=== PATIENT | female | born 1985 | race Caucasian/White ===

== ENCOUNTER 2021-10-08 13:00 | Outpatient (RCR) | payer BC ==
--- NOTE | 2021-09-24 13:50 | NUR ---
Iron infusion complete. This is pt first dose so she will sit for one hour before discharging.
[2021-09-24 14:19] VITALS: BP 122/74; PULSE 57; TEMP 98.1
[2021-10-01 13:31] VITALS: BP 107/64; PULSE 62; TEMP 98.8
--- NOTE | 2021-10-01 13:31 | NUR ---
Pt refused tylenol and benadry premeds.
[~2021-10-08] VITALS: Ht 167.6 cm; Wt 121.0 kg
[~2021-10-08 13:00] MED LIST: AJOVY225 MG/1.5 SQ; ALEVE 220MG220 MG PO; BUSPAR5 MG PO; DESYREL 50MG50 MG PO; FLAGYL500 MG PO; IMITREX100 MG PO; UBRELVY50 MG PO; ZOLOFT 100MG100 MG PO; [UNRECOGNIZED DRUG - OTHER] VG
[2021-10-08 13:24] VITALS: BP 114/78; PULSE 64; TEMP 98.2
== END 2021-10-16 13:48 ==
LOC: EUO 13:00
DX: D50.9 Iron deficiency anemia, unspecified (principal); Z79.899 Other long term (current) drug therapy
CPT/HCPCS: J1756

== ENCOUNTER → 2022-01-16 | Outpatient (CLI) | payer BC | LOC: COL.RAD 07:39 | DX: K80.20 Calculus of gallbladder without cholecystitis without obstruction (principal); K76.0 Fatty (change of) liver, not elsewhere classified ==

== ENCOUNTER 2024-04-30 14:22 | Inpatient (IN) | payer OTHER ==
[~2024-04-30] VITALS: Ht 167.6 cm; Wt 61.3 kg
[2024-05-04] VITALS (10 sets, daily range): BP systolic 97–111; BP diastolic 63–72; PULSE 71–79; TEMP 97.8–98.4
--- NOTE | 2024-05-04 03:51 | NUR ---
An Electronic Health Record (EHR) downtime event occurred during this patient s care. For legal medical record information generated during the downtime period, please reference the patient s legal record information generated during the downtime period, please reference the patient s legal medical record. Paper or scanned documentation has been incorporated into the legal medical record which is maintained in accordance with Health Information Management (HIM) and record retention policies
[2024-05-04] MEDS ORDERED: fentaNYL 50 MCG/ML 2 ML VIAL IV PRN (04:30)
[2024-05-04] MEDS ORDERED: Acetaminophen Oral Susp 325 MG/10.15 ML UD PO PRN (04:30)
[2024-05-04] MEDS ORDERED: Albuterol/Ipratropium 3 MG-0.5 MG/3 ML Neb Soln IH PRN (04:30)
[2024-05-04] MEDS ORDERED: Morphine 4 MG/ML VIAL IV PRN (04:30)
[2024-05-04] MEDS ORDERED: Naloxone 0.4 MG/ML VIAL IV PRN (04:45)
[2024-05-04] MEDS ORDERED: Ondansetron 4 MG/2 ML VIAL IV PRN (04:45)
[2024-05-04] MEDS ORDERED: D10W 1,000 ML IV SCH (06:00)
[2024-05-04] MEDS ORDERED: Insulin Lispro (HumaLOG) SQ SCH (08:00)
--- NOTE | 2024-05-04 08:00 | NUR ---
PATIENT IS A&O. VSS. NOTED AM BS OF 75. NPO. PLAN IS FOR A SWALLOW EVAL THIS AM, HOLDING BOLUS FEEDS TILL AFTER SWALLOW EVAL. PATIENT REPORTS SOME NAUSEA & FREQUENT STOOLS AFTER THE LAST TWO FEEDINGS SHE GOT YESTERDAY. DIETARY FOLLOWING, WILL DISCUSS FEED TOLERATION. IV FLUIDS INFUSING VIA PUMP INTO RIGHT WRIST IV. G-TUBE CLAMPED. SELENE DRAIN NOTED SATURATED DSG AND NO BULB COMPRESSION. CHANGED SELENE DSG AND PUT DRAIN TO BULB COMPRESSION. ABD LAP SITES X4 ARE WELL APPROXIMATED. HEAD TO TOE ASSESSMENT COMPLETE. FAMILY AT BEDSIDE THIS AM. NO OTHER NEEDS. CALL LIGHT IN REACH.
[2024-05-04] MEDS ORDERED: Patient's Own Medication Item PO SCH (09:00)
[2024-05-04] MEDS ORDERED: Pantoprazole 40 MG in NS 10 ML IV SCH (09:00)
--- NOTE | 2024-05-04 09:45 | NUR ---
PATIENT GOING DOWN TO RADIOLOGY FOR SWALLOW EVAL.
--- NOTE | 2024-05-04 13:00 | NUR ---
PATIENT C/O NAUSEA AND SHARP LEFT FLANK POSTERIOR PAIN AFTER 120CC BOLUS FEED IN G-TUBE. GAVE PRN IV ZOFRAN. NO EMESIS, BASIN AT BEDSIDE. PATIENT NOW REFUSING FUTURE BOLUS FEEDS BUT WOULD STILL LIKE TO HAVE CLEAR LIQUID DIET. PROVIDER NOTIFIED.
[2024-05-04] MEDS ORDERED: Sucralfate Susp 1 GM/10 ML UD PO SCH (14:00)
--- NOTE | 2024-05-04 19:39 | NUR ---
report received from leann roach. pt resting in bed working on her laptop. pt denies pain. call light in reach. all needs met at this time.
[2024-05-04] MEDS ORDERED: SUMAtriptan 6 MG/0.5 ML SYRINGE SQ PRN (20:30)
--- NOTE | 2024-05-04 22:18 | NUR ---
shift assessment complete, see documentation. pt tolerated hs meds well. pt c/o headache rating it 06/02. prn imitrex administered per orders. pt also requesting pain meds related to lower abdomen dressing site. call light in reach. all needs met at this time.
[2024-05-05] VITALS (11 sets, daily range): BP systolic 98–110; BP diastolic 65–73; PULSE 18–82; TEMP 97.5–98.3
--- NOTE | 2024-05-05 09:10 | NUR ---
Pt laying in bed. Mother and son at bedside. A&Ox4. VSS. S1S2. Clear lungs on RA. ABD is flat, soft, non-tender with audible bowel sounds. Palpable pulses in all extremities with 5/5 strength. PT reports pain when moving, but minimal pain 1-2/10 when remaining still. Feels as if sutures holding drain in are pulling when walking. SELENE drain site is CDI with gauze dressing. Minimal red-tinged drainage in bulb. G-tube site is CDI with gauze dressing. Lap sites x4 - WA, open to air. IV in R forearm has bloody drainage on dressing. Pt denies pain at IV site. Discussed need to change IV site today. Pt agreeable. IV has 10% Dextrose at 75 cc/hr and Zosyn 4.35g @ 25cc/hr running. Pt states items on trays are too sugary for her to eat. Sugar makes her feel sick. Pt's mother brought in beef broth. Pt able to sip on it. Pt wanting to talk with provider regarding showering and plan to advance diet. Told Pt the provider would be in to see her today. Administered AM meds. Call light in reach.
--- NOTE | 2024-05-05 10:44 | NUR ---
No gastric return from G-tube. 30 mLs water administered. Pt states anything going into the G-tube makes her nauseated. Attmepted twice to get new IV. RAMANDEEP called. Pt has call light in reach.
[2024-05-05] MEDS ORDERED: *Potassium Replacement Protocol MC SCH (16:30)
[2024-05-05] MEDS ORDERED: Potassium Bicarbonate/Citrate 20 MEQ Effervescent TAB PO SCH (16:30)
[2024-05-05] MEDS ORDERED: traZODone 50 MG TAB PO PRN (17:15)
--- NOTE | 2024-05-05 20:30 | NUR ---
G-TUBE FLUSHED WITH WARM WATER 30ML. NO COMPLICATIONS NOTED. SELENE DRAIN SERINSANGEOUS FLUID DRAINING.
[2024-05-05] MEDS ORDERED: traZODone 50 MG TAB PO SCH (21:00)
--- NOTE | 2024-05-05 21:00 | NUR ---
UPON SHIFT ASSESSMENT, MARCELLUS WAS AWAKE IN BED WITH DEXTROSE IV RUNNING AT 75ML/HR. SELENE DRAINING SEROUS FLUID, G-TUBE SITE SHOWS MINIMAL DRAINAGE. PATIENT DENIES NAUSEA AND IS AWAITING PROTEIN SHAKES THAT SHE TOLERATES WELL TO BE BROUGHT BY FAMILY MEMBER. PATIENT DENIES PAIN OR NEEDS AT THIS TIME VS ARE WNL.
[2024-05-06] VITALS (7 sets, daily range): BP systolic 98–107; BP diastolic 66–72; PULSE 61–76; TEMP 97.5–98
--- NOTE | 2024-05-06 01:49 | NUR ---
ENTERED PATIENT ROOM, SELENE BULB SUCTION SEAL UNDONE. 10 ML SERINSANGEOUS FLUID NOTED. RE-ESTABLISHED BULB SUCTION.
--- NOTE | 2024-05-06 04:30 | NUR ---
G-TUBE DRESSING CHANGED. SCANT DRIED BLOOD. SELENE DRAIN SITE MINIMAL DRAINAGE-DID NOT CHANGE DRESSING IT WILL MOST LIKELY BE PULLED TODAY. ENCOURAGED PATIENT TO CONSUME PROTEIN SHAKE BG WAS NOW 89. PATIENT ACCEPTING.
[2024-05-06] MEDS ORDERED: Dextrose (Glucose) 15 GM (4 x 3.75 GM) Chewable TABLET PACK PO PRN (09:00)
[2024-05-06] MEDS ORDERED: Dextrose 50% Water 25 GM/50 ML SYRINGE IV PRN (09:00)
[2024-05-06] MEDS ORDERED: Glucagon 1 MG VIAL IM PRN (09:00)
[2024-05-06] MEDS ORDERED: Sertraline 100 MG TAB PO SCH (09:09)
[2024-05-06] MEDS ORDERED: busPIRone 5 MG TAB PO SCH (09:09)
--- NOTE | 2024-05-06 09:51 | NUR ---
Follow-up visit; Monique states that she is doing well this morning. At least one family member is with her. Wrapper Rewinder wishes her well and God's blessings as always.
--- NOTE | 2024-05-06 10:06 | NUR ---
AM MEDS GIVEN ORDERED. PT RESTING IN BED WITH FAMILY AT BEDSIDE. IV TO RFA PATENT AND FLUID @75 MLS. IN TO SEE PT THIS AM, SEE COMPUTER FOR ORDERS.
--- NOTE | 2024-05-06 10:20 | NUR ---
DISCONTINUED SELENE DRAIN PER DR. TOENY. PT TOLERATED WELL. DRESED DRAIN SITE WITH GAUZE AND TAPE.
[2024-05-06] MEDS ORDERED: PROTONIX 40MG T40 MG PO (12:40)
[2024-05-06] MEDS ORDERED: CARAFATE 1GM1 G PO (12:41)
--- NOTE | 2024-05-06 15:26 | NUR ---
DISCHARGE INSTRUCTIONS REVIEWED WITH PT. QUESTIONS ANSWERED. PT WAITING FOR RIDE FROM FAMILY.
== END 2024-05-06 16:42 | disposition home or self-care (01) | DRG 327 ==
LOC: COL.ER 14:22 → SURG 05-01 02:05
PROVIDERS: ADMIT Hospitalist
PROC: 0DU647Z Supplement Stomach with Autologous Tissue Substitute, Percutaneous Endoscopic Approach (ICD-10-PCS; principal; 2024-05-01)
PROC: 8E0W4CZ Robotic Assisted Procedure of Trunk Region, Percutaneous Endoscopic Approach (ICD-10-PCS; 2024-05-01)
PROC: 0DH64UZ Insertion of Feeding Device into Stomach, Percutaneous Endoscopic Approach (ICD-10-PCS; 2024-05-01)
DX: K25.5 Chronic or unspecified gastric ulcer with perforation (principal); E87.1 Hypo-osmolality and hyponatremia; K56.609 Unspecified intestinal obstruction, unspecified as to partial versus complete obstruction; E83.42 Hypomagnesemia; E87.6 Hypokalemia; E16.2 Hypoglycemia, unspecified; G43.909 Migraine, unspecified, not intractable, without status migrainosus; F32.A Depression, unspecified; G47.00 Insomnia, unspecified
CPT/HCPCS: A9284; C9113; J1650; J2405; J2543; J3030

== ENCOUNTER 2024-05-21 07:51 | Day surgery (SDC) | payer OTHER ==
[~2024-05-21] VITALS: Ht 165.1 cm; Wt 63.0 kg
[~2024-05-21 07:51] MED LIST changes: +CARAFATE 1GM1 G PO; +Iohexol 300 - 100 ML VIAL IV ONE; +LR 1,000 ML IV SCH; +PROTONIX 40MG T40 MG PO
[2024-05-21 08:29] VITALS: BP 106/77; PULSE 74; TEMP 97.5
[2024-05-21] MEDS ORDERED: IMITREX ST6 MG/0.51 SQ (08:53)
[2024-05-21] MEDS ORDERED: PROTONIX 40MG T40 MG PO (08:54)
[2024-05-21] MEDS ORDERED: CARAFATE 1GM1 G PO (08:55)
[2024-05-21] MEDS ORDERED: STRATTERA 40MG40 MG PO (08:57)
--- NOTE | 2024-05-21 09:07 | NUR ---
Pt arrived with mother, VSS and WNL for procedure, RR even and unlabored, consents reviewed and signed, no questions/concerns; pt changed Gtube site dressings by self; reviewed meds/pharm/allergies/history.
[2024-05-21] MEDS ORDERED: Lidocaine PF 2% (20 MG/ML) 5 ML VIAL ONE (09:42)
[2024-05-21] MEDS ORDERED: fentaNYL 50 MCG/ML 2 ML VIAL ONE (09:42)
[2024-05-21] MEDS ORDERED: dexAMETHasone 10 MG/ML VIAL ONE (09:43)
[2024-05-21] MEDS ORDERED: Ketorolac 30 MG/ML VIAL ONE (09:43)
[2024-05-21] MEDS ORDERED: NS 10 ML IV ONE (09:43)
[2024-05-21] MEDS ORDERED: Ondansetron 4 MG/2 ML VIAL ONE (09:43)
[2024-05-21] MEDS ORDERED: NORCO 325 MG-51 TAB PO (09:59)
[2024-05-21] MEDS ORDERED: droPERidol 2.5 MG/ML 2 ML VIAL IV PRN (10:15)
[2024-05-21] MEDS ORDERED: Morphine 2 MG/1 ML VIAL [PACU/SDC ONLY] IV PRN (10:15)
[2024-05-21] MEDS ORDERED: Ondansetron 4 MG/2 ML VIAL IV PRN ×2 (10:15→11:00)
[2024-05-21] MEDS ORDERED: hydrALAZINE 20 MG/ML 1 ML VIAL IV PRN (10:15)
[2024-05-21] MEDS ORDERED: HYDROmorphone 1 MG/1 ML SYRINGE [PACU/SDC ONLY] IV PRN (10:15)
[2024-05-21] MEDS ORDERED: fentaNYL 50 MCG/ML 1 ML SYRINGE/VIAL [PACU/SDC ONLY] IV PRN (10:15)
[2024-05-21] MEDS ORDERED: Acetaminophen 325 MG TAB PO PRN (11:00)
[2024-05-21 11:30] VITALS: BP 112/74; PULSE 108; TEMP 97.8
[2024-05-21 11:45] VITALS: BP 109/70; PULSE 92
--- NOTE | 2024-05-21 11:56 | NUR ---
Pt arrived from PACU at 1125, bedside report given. 4x4 with medipore tape to epigastric area, CDI, surrounding skin without s/s of infection; VSS thus far. Mother at bedside. Pt has already tolerated PO fluids and PO oral intake. Pt c/o pain to left epigastric area, IV Dilaudid administered in PACU, ice bag given. To reassess as needed.
--- NOTE | 2024-05-21 11:58 | NUR ---
Pt still c/o of pain to left epigastric area. Pt denies gas pain. Area where pain is looks WNL. Dressing remains CDI, surrounding skin WNL. Pt and mother states the pain is similar to when she had the bowel perforation, RN to reach out to Dr. St to inquire.
[2024-05-21 12:15] VITALS: BP 103/69; PULSE 85
[2024-05-21 12:30] VITALS: BP 103/67; PULSE 88
== END 2024-05-21 13:00 | disposition home or self-care (01) ==
LOC: SDCO 07:51
DX: K31.6 Fistula of stomach and duodenum (principal); K63.1 Perforation of intestine (nontraumatic); K94.23 Gastrostomy malfunction; Z98.84 Bariatric surgery status
CPT/HCPCS: J0690; J1100; J1170; J1885; J2405; J2704; J3010; J7120; Q9967

== ENCOUNTER 2024-05-22 03:54 | Inpatient (IN) | payer OTHER ==
[~2024-05-22] VITALS: Ht 165.1 cm; Wt 66.8 kg
[2024-05-22] VITALS (15 sets, daily range): BP systolic 86–100; BP diastolic 50–65; PULSE 81–116; TEMP 98.2–99.3
[~2024-05-22 03:54] MED LIST changes: +IMITREX ST6 MG/0.51 SQ; -Iohexol 300 - 100 ML VIAL IV ONE; -LR 1,000 ML IV SCH; +NORCO 325 MG-51 TAB PO; +STRATTERA 40MG40 MG PO
[2024-05-22] MEDS ORDERED: fentaNYL 50 MCG/ML 2 ML VIAL IV ONE ×2 (04:30→07:15)
[2024-05-22] MEDS ORDERED: HYDROmorphone 0.5 MG/0.5 ML SYRINGE IV ONE ×2 (04:30→05:00)
[2024-05-22] MEDS ORDERED: Ondansetron 4 MG/2 ML VIAL IV ONE ×2 (04:30→08:15)
[2024-05-22] MEDS ORDERED: NS 1,000 ML IV ONE ×2 (05:00→07:00)
[2024-05-22 05:03] LABS: BASO % 0.3 % (0.0-2.0); EOS % 0.4 % (0.0-4.0); GRAN # 7.5 K/mm3 (1.4-6.5); HEMATOCRIT 42.5 % (37.0-47.0); HEMOGLOBIN 14.4 g/dl (12.5-16.0); LYMPH # 2.1 K/mm3 (1.2-3.4); LYMPH % 20.6 % (20.0-51.0); MEAN CELL VOLUME 94 fl (80.0-100.0); MEAN CORPUSCULAR HEMOGLOBIN 32 pg (27-31); MEAN CORPUSCULAR HGB CONC 34 g/dl (33.0-37.0); MEAN PLATELET VOLUME 11.3 fl (7.4-10.4); MONO # 0.5 K/mm3 (0.1-0.6); MONO % 4.4 % (1.7-9.3); PLATELET COUNT 414 K/mm3 (130-400)
[2024-05-22 05:15] LABS: ALBUMIN 3.9 g/dL (3.5-5.0); BILIRUBIN,TOTAL 0.7 mg/dL (0.2-1.2); CREATININE, serum 0.72 mg/dL (0.57-1.11); MAGNESIUM 1.9 mg/dL (1.6-2.6); POTASSIUM 3.2 mEq/L (3.5-4.5); TOTAL PROTEIN 6.8 g/dl (6.2-8.1)
[2024-05-22 05:31] LABS: URINE APPEARANCE CLEAR (CLEAR/HAZY); URINE BLOOD NEGATIVE (NEGATIVE); URINE COLOR YELLOW (YELLOW); URINE GLUCOSE NEGATIVE (NEGATIVE); URINE KETONE TRACE (NEGATIVE); URINE NITRATE NEGATIVE (NEGATIVE); URINE PROTEIN(semi-quant) NEGATIVE (NEGATIVE)
[2024-05-22] MEDS ORDERED: Iohexol 300 - 100 ML VIAL IV ONE (05:33)
[2024-05-22] MEDS ORDERED: NS 50 ML IV ONE (05:38)
[2024-05-22 05:55] LABS: COLLECTION METHOD CLEAN CATCH
[2024-05-22] MEDS ORDERED: Rocuronium 50 MG/5 ML Multi-Dose VIAL ONE (08:09)
[2024-05-22] MEDS ORDERED: dexAMETHasone 10 MG/ML VIAL ONE (08:09)
[2024-05-22] MEDS ORDERED: Ondansetron 4 MG/2 ML VIAL ONE (08:09)
[2024-05-22] MEDS ORDERED: Lidocaine PF 2% (20 MG/ML) 5 ML VIAL ONE (08:09)
[2024-05-22] MEDS ORDERED: fentaNYL 50 MCG/ML 2 ML VIAL ONE (08:11)
[2024-05-22] MEDS ORDERED: fentaNYL 50 MCG/ML 1 ML SYRINGE/VIAL [PACU/SDC ONLY] IV PRN (08:30)
[2024-05-22] MEDS ORDERED: hydrALAZINE 20 MG/ML 1 ML VIAL IV PRN (08:30)
[2024-05-22] MEDS ORDERED: Ondansetron 4 MG/2 ML VIAL IV PRN ×2 (08:30→10:15)
[2024-05-22] MEDS ORDERED: HYDROmorphone 1 MG/1 ML SYRINGE [PACU/SDC ONLY] IV PRN (08:30)
[2024-05-22] MEDS ORDERED: Scopolamine 1 MG Delivered 3-Day PATCH TD SCH (08:35)
[2024-05-22] MEDS ORDERED: ePHEDrine 50 MG/ML VIAL ONE (08:59)
[2024-05-22] MEDS ORDERED: NS 1,000 ML IV SCH (10:15)
[2024-05-22] MEDS ORDERED: HYDROmorphone 0.5 MG/0.5 ML SYRINGE IV PRN (10:15)
[2024-05-22] MEDS ORDERED: oxyCODONE 5 MG TAB PO PRN (10:15)
[2024-05-22] MEDS ORDERED: Naloxone 0.4 MG/ML VIAL IV PRN (10:15)
[2024-05-22] MEDS ORDERED: Acetaminophen 500 MG TAB PO PRN (10:15)
--- NOTE | 2024-05-22 10:50 | NUR ---
pt admitted to room from pacu, mother at bedside. pt a&ox4. rates pain a 4/10 which is tolerable for her. denies nausea. x3 lap sites are cdi, abcess incision with gauze dressing with some bloody drainage. scopalamine patch to right ear. fluids infusing into left hand IV. pt oriented to room. med rec and admission assessment complete. pt requesting ice chips, otherwise all needs are met. call light in reach.
--- NOTE | 2024-05-22 11:58 | NUR ---
Data: Drafter [employer] noticed Patient's Mother in surgery waiting area while on [employer] rounds. Assessment: Mother is appropriately concerned and wishes to be supportive. Plan of Care: Drafter [employer] provided prayer and supportive listening to Patient's Mother. Chaplains will remain available as needed/requested while Patient is admitted to this hospital.
[2024-05-22] MEDS ORDERED: Sucralfate 1 G TAB PO SCH (14:00)
[2024-05-22 15:44] LABS: CALCIUM 7.5 mg/dL (8.4-10.2); CREATININE, serum 0.66 mg/dL (0.57-1.11)
[2024-05-22 15:48] LABS: POTASSIUM 2.9 mEq/L (3.5-4.5)
[2024-05-22] MEDS ORDERED: Potassium Bicarbonate/Citrate 20 MEQ Effervescent TAB PO SCH (16:15)
[2024-05-22] MEDS ORDERED: *Potassium Replacement Protocol MC SCH (16:15)
--- NOTE | 2024-05-22 16:58 | NUR ---
draw off worker met with patient to discuss discharge planning. Ha reports she lives in [place]. Her best point of contact is Denny, mother, P# [phone]. PCP is Dr. Gonzales, Pharmacy is [facility]. Insurance is [employer]. No DPOA-HC and not interested in completing one at this time. No DME. Patient reports to be independent with ADLS and is able to transport herself to and from appointments. Patient would like to return home at time of discharge. Discharge plan: Home
[2024-05-22] MEDS ORDERED: traMADol 50 MG TAB PO PRN (17:45)
[2024-05-22 18:15] LABS: C-REACTIVE PROTEIN 4.6 mg/dL (0.00-0.50)
[2024-05-22] MEDS ORDERED: traZODone 50 MG TAB PO SCH (21:00)
[2024-05-23] VITALS (13 sets, daily range): BP systolic 90–105; BP diastolic 56–94; PULSE 76–101; TEMP 98.7–101
[2024-05-23 06:29] LABS: MEAN CELL VOLUME 94 fl (80.0-100.0); MEAN CORPUSCULAR HGB CONC 35 g/dl (33.0-37.0); RED BLOOD COUNT 3.21 M/mm3 (4.10-5.30); REDCELL DISTRIBUTION WIDTH-CV 12.6 % (11.5-14.5)
[2024-05-23 06:51] LABS: ALBUMIN 2.8 g/dL (3.5-5.0); BILIRUBIN,TOTAL 1.1 mg/dL (0.2-1.2); CALCIUM 7.7 mg/dL (8.4-10.2); CREATININE, serum 0.55 mg/dL (0.57-1.11); HEMATOCRIT 30.3 % (37.0-47.0); HEMOGLOBIN 10.5 g/dl (12.5-16.0); MEAN CORPUSCULAR HEMOGLOBIN 33 pg (27-31); PLATELET COUNT 264 K/mm3 (130-400); POTASSIUM 3.2 mEq/L (3.5-4.5); TOTAL PROTEIN 5.1 g/dl (6.2-8.1)
[2024-05-23 06:52] LABS: MEAN PLATELET VOLUME 11.6 fl (7.4-10.4)
[2024-05-23] MEDS ORDERED: Potassium Bicarbonate/Citrate 20 MEQ Effervescent TAB PO SCH (07:30)
--- NOTE | 2024-05-23 07:40 | NUR ---
pt a&ox4 resting in bed. vss. pt reports having a headache, imitrex on held and states that tylenol does not provide relief. pt reports pain on bilateral sides of abdomen, denies wanting narcotics due to headache but ok to try tramadol. pt tolerating clear liquids, will advance to fulls for lunch. [t reports passing gas, bowel sounds are active in all quadrants. incisions are cdi. fluids infusing into left hand IV. potassium replaced per protocol. pt denies needs at this time. call light in reach.
[2024-05-23 08:17] LABS: BAND 11 % (0-10); LYMPHOCYTE 9 % (20.0-51.0); NEUTROPHILS 80 % (42.0-75.2); PLATELET ESTIMATE NORMAL (NORMAL)
[2024-05-23] MEDS ORDERED: SUMAtriptan 6 MG/0.5 ML SYRINGE SQ PRN (08:45)
[2024-05-23 09:12] LABS: C-REACTIVE PROTEIN 12.3 mg/dL (0.00-0.50)
[2024-05-23] MEDS ORDERED: Docusate Sodium 100 MG CAP PO SCH (21:15)
--- NOTE | 2024-05-23 21:57 | NUR ---
Patient assessed around 2044. Alert and oriented, and able to make needs known. Reported level 6 pain to abdomen, and given PRN Ultram. Peripheral IV to left hand with IV fluids and ABX running per orders. Denies SOB and dyspnea. LS CTA. HRR. BSAx4. Reported small, hard BM. Call placed to Dr. Hodge and requested Colace BID, order received and given per order. Lap sites to abdomen well approximated, wet to dry dressing to abdomen CDI. Dr. Hodge had changed dressing twice today. Patient given PRN Acetaminophen around 2129 for fever. Voices no further questions, needs, or concerns at this time. In bed with call light within reach.
[2024-05-24] VITALS (15 sets, daily range): BP systolic 94–99; BP diastolic 57–64; PULSE 71–99; TEMP 98.5–100.7
--- NOTE | 2024-05-24 05:03 | NUR ---
Continues on IV fluids and ABX per orders. Given Acetaminophen twice this shift for low grade fever, and Tramadol once this shift as requested for pain. Voices no further questions, needs, or concerns at this time. In bed with call light within reach.
[2024-05-24 05:35] LABS: MEAN CELL VOLUME 94 fl (80.0-100.0); MEAN CORPUSCULAR HGB CONC 34 g/dl (33.0-37.0); MEAN PLATELET VOLUME 11.7 fl (7.4-10.4); PLATELET COUNT 205 K/mm3 (130-400); RED BLOOD COUNT 3.03 M/mm3 (4.10-5.30); REDCELL DISTRIBUTION WIDTH-CV 12.5 % (11.5-14.5)
[2024-05-24 05:41] LABS: HEMATOCRIT 28.5 % (37.0-47.0); HEMOGLOBIN 9.7 g/dl (12.5-16.0); MEAN CORPUSCULAR HEMOGLOBIN 32 pg (27-31)
[2024-05-24 06:04] LABS: ALBUMIN 2.4 g/dL (3.5-5.0); BILIRUBIN,TOTAL 0.9 mg/dL (0.2-1.2); CALCIUM 7.5 mg/dL (8.4-10.2); CREATININE, serum 0.54 mg/dL (0.57-1.11); POTASSIUM 3.5 mEq/L (3.5-4.5); TOTAL PROTEIN 4.9 g/dl (6.2-8.1)
[2024-05-24 06:27] LABS: BAND 14 % (0-10); LYMPHOCYTE 7 % (20.0-51.0); NEUTROPHILS 77 % (42.0-75.2); PLATELET ESTIMATE NORMAL (NORMAL)
[2024-05-24 06:31] LABS: C-REACTIVE PROTEIN 14.48 mg/dL (0.00-0.50)
[2024-05-24] MEDS ORDERED: Potassium Bicarbonate/Citrate 20 MEQ Effervescent TAB PO SCH (08:00)
--- NOTE | 2024-05-24 08:15 | NUR ---
pt a&ox4 resting in bed. meds given and assessment complete. pt reports nausea after eating breakfast, zofran given per emar. pt reports pain is tolerable. abdominal dressing is cdi and changed by Dr Hodge this morning, samara bandage in place due to tape causing irritation to pts skin. pt denies needs at this time. call light in reach.
--- NOTE | 2024-05-24 21:44 | NUR ---
Patient assessed 1919. Alert and oriented, and able to make needs known. Complained of level 7 pain to abdomen. Given PRN Tramadol. Around 2099, continued to have pain, rated as an 8. Given PRN Roxicodone. Peripheral INT to left hand, started IV ABX per orders. Denies SOB and dypsnea. LS CTA. HRR. BSAx4. Reports continues to pass gas, no further BM since started Colace. Wet to dry dressing to abdomen changed per orders. Minimal drainge, bloody with some yellow drainage. Sherman wrap placed around abodmen due to hold dressing in place due to tape bothering abdomen. Voices no further questions, needs, or concerns at this time. In bed with call light within reach.
[2024-05-25] VITALS (12 sets, daily range): BP systolic 99–110; BP diastolic 65–75; PULSE 72–93; TEMP 98.4–99.8
--- NOTE | 2024-05-25 05:56 | NUR ---
Temp max 99.4 during the night. Received PRN Ultram twice, and Roxicodone once this shift for pain as requested. Increased pain/burning to abdomen compared to previous night. Reports she feels as though her joints are also sore. Encouraged to get up and ambulate more today if possible. Voices no further questions, needs, or concerns at this time. In bed with call light within reach. Conitnues on IV ABX per orders.
[2024-05-25 06:40] LABS: MEAN CELL VOLUME 98 fl (80.0-100.0); MEAN CORPUSCULAR HGB CONC 33 g/dl (33.0-37.0); MEAN PLATELET VOLUME 11.8 fl (7.4-10.4); PLATELET COUNT 205 K/mm3 (130-400); RED BLOOD COUNT 2.78 M/mm3 (4.10-5.30); REDCELL DISTRIBUTION WIDTH-CV 12.3 % (11.5-14.5)
[2024-05-25 06:47] LABS: HEMATOCRIT 27.1 % (37.0-47.0); MEAN CORPUSCULAR HEMOGLOBIN 32 pg (27-31)
[2024-05-25 07:36] LABS: BAND 6 % (0-10); EOSINOPHIL 3 % (0-4); LYMPHOCYTE 13 % (20.0-51.0); NEUTROPHILS 74 % (42.0-75.2); PLATELET ESTIMATE NORMAL (NORMAL)
[2024-05-25 08:11] LABS: C-REACTIVE PROTEIN 10.79 mg/dL (0.00-0.50); CALCIUM 7.7 mg/dL (8.4-10.2); CREATININE, serum 0.53 mg/dL (0.57-1.11); POTASSIUM 3.6 mEq/L (3.5-4.5)
--- NOTE | 2024-05-25 08:16 | NUR ---
Pt resting in bed with pain 06/02. No pain medications available at this time. Pt independent around room with steady gait. Pt stating decreased appetite with PO fluid intake adequate. Abdominal incision with wet to eva dressing and samara wrap, 3 lap sites MARKEL. No needs at this time, will continue to monitor.
[2024-05-25] MEDS ORDERED: Potassium Bicarbonate/Citrate 20 MEQ Effervescent TAB PO SCH (08:45)
[2024-05-25] MEDS ORDERED: Fluconazole 100 MG TAB PO SCH (10:46)
--- NOTE | 2024-05-25 13:02 | NUR ---
Dr St at bedside with patient, verbal orders to increase dressing changes to TID. Dr Hodge at bedside, pt notified dr of increased pain and burning of site today. Verbal orders to rinse wound site with 10 cc syringe every dressing change and to make pt NPO at midnight for possible I&D 05/26. Will continue to monitor.
[2024-05-25] MEDS ORDERED: diphenhydrAMINE 25 MG CAP PO PRN (17:45)
--- NOTE | 2024-05-25 21:00 | NUR ---
Patient resting in bed. Rates pain at 6/10, prn pain meds given. Needs met. Assessment complete. ABD dressing changed. IV in left hand flushes easily without complications. Call light and personal items in reach. Bed in low position.
[2024-05-26] VITALS (11 sets, daily range): BP systolic 11–112; BP diastolic 67–75; PULSE 79–83; TEMP 98.1–100
--- NOTE | 2024-05-26 06:00 | NUR ---
Patient resting in bed. Patient has been NPO since midnight. No other changes over night.
[2024-05-26] MEDS ORDERED: Potassium Bicarbonate/Citrate 20 MEQ Effervescent TAB PO SCH (07:30)
--- NOTE | 2024-05-26 07:55 | NUR ---
Pt resting in bed with pain 7/10 in abdomen. PO pain medication provided. Wet to dry dressing with gauze and tape applied, wound rinsed with 10cc sterile water. Dr Hodge at bedside to change pt back to general diet and continue to encourage PO pain medication instead of IV dilaudid. Steady gait around room independent, no needs at this time, will continue to monitor.
--- NOTE | 2024-05-26 16:10 | NUR ---
Return demonstration of wet to dry dressing change of abdominal wound provided by pt to this nurse. Pt demonstrates understanding of aspectic technique and use of supplies available. Pt requesting discharge medications be sent to [facility] today, 7-3, to avoid delayed fills due to holiday upon discharge tomorrow. Voicemail left for Dr Hodge. Follow up appointment made for pt upon Dr Hodge request. Pt continues to complain of abdominal pain 06/02, IV pain medication provided. Pt eduated on need to decrease IV pain medicaiton prior to date of discharge. Will continue to monitor.
[2024-05-26] MEDS ORDERED: ULTRAM 50MG TAB50 MG PO (17:17)
[2024-05-26] MEDS ORDERED: OMNICEF 300MG300 MG PO (17:18)
[2024-05-26] MEDS ORDERED: DIFLUCAN200 MG PO (17:18)
[2024-05-26] MEDS ORDERED: DOXYCYCLINE HY100 MG PO (17:22)
--- NOTE | 2024-05-26 22:00 | NUR ---
Patient crying in bed due to pain. Charge nurse Liv at bedside administering pain meds at this time. Was notified about pain when busy in another patient room and staff notified patient this nurse would be in as soon as possible. Called again shortly after about worsening pain and asked tech if they could find another nurse to give pain meds as this nurse was still busy in the same patients room and that I would be in as soon as possible. Rates pain at 10/10 at this time. When giving evening meds offered oxy as well and patient accepted, oxy given. Dressing changed. IV in left hand flushes easliy without complications. Offered ice or heat pack, patient stated she had an ice pack. Needs met, denies any other needs at this time. Assessment complete. Call light and personal items in reach. Bed in low position.
--- NOTE | 2024-05-26 22:03 | NUR ---
Call from PCT to 3rd floor charge that patient is upset due to primary nurse being busy in another room and requesting pain meds. This nurse to room-patient is very [id number] "I have been forgotten and cant get any help." States "it has been this way all day and i dont understand." Explained to patient that primary nurse in fact is in a room with another patient and that I would be happy to give pain meds at this time. Patient then states that wet to dry dressing to abdomen has been painful since it had been changed. Based on charting-dressing was changed at 1600 and is still intact and appropriate. Patient then states "my left side is more swollen and feels numb." Patient is rating pain 10/10 on pain scale to abdominal packed site. Discussed options for pain meds-this nurse offered PO oxycodone and IV dilaudid due to high pain level at this time. Patient states I only want the IV medication at this time-dilaudid given per dr curry. SUJIT Khan-primary nurse is now in room assessing dressing site. Patient now states she wants the oxycodone as well. This nurse asked if there was anything else I could do and she states "no, this day has just been one disaster after another and I want to go home." Reported off to SUJIT Khan.
--- NOTE | 2024-05-26 23:00 | NUR ---
Dr. Hodge called and notifed of patients increased pain and need for IV pain meds. Also made aware of left side of abd and left hip slightly more swollen with +1 pitting edema and warmth. Slight temp of 99.6, tylenol to be given. Dr. Hodge stated to offer ice pack and watch temp. Appreciate update.
[2024-05-27] VITALS (8 sets, daily range): BP systolic 96–122; BP diastolic 63–77; PULSE 73–99; TEMP 98–98.6
[2024-05-27 06:39] LABS: MEAN CELL VOLUME 96 fl (80.0-100.0); MEAN CORPUSCULAR HEMOGLOBIN 32 pg (27-31); MEAN CORPUSCULAR HGB CONC 33 g/dl (33.0-37.0); MEAN PLATELET VOLUME 11.3 fl (7.4-10.4); PLATELET COUNT 265 K/mm3 (130-400); RED BLOOD COUNT 3.14 M/mm3 (4.10-5.30)
[2024-05-27 07:06] LABS: ALANINE AMINOTRANSFERASE 96 U/L (0-55); ALBUMIN 2.3 g/dL (3.5-5.0); ALKALINE PHOSPHATASE 63 U/L (40-150); ANION GAP 7 mmol/L (7-16); AST,SGOT 19 U/L (5-34); BILIRUBIN,TOTAL 0.4 mg/dL (0.2-1.2); C-REACTIVE PROTEIN 5.12 mg/dL (0.00-0.50); CHLORIDE 105 mEq/L (98-107); CREATININE, serum 0.58 mg/dL (0.57-1.11); GLUCOSE 83 mg/dL (70-99); POTASSIUM 3.6 mEq/L (3.5-4.5); SODIUM 142 mEq/L (136-145); TOTAL PROTEIN 5.5 g/dl (6.2-8.1)
[2024-05-27 07:07] LABS: BLOOD UREA NITROGEN < 5 mg/dL (7-19)
[2024-05-27 08:01] LABS: BAND 3 % (0-10); EOSINOPHIL 4 % (0-4); LYMPHOCYTE 35 % (20.0-51.0); NEUTROPHILS 49 % (42.0-75.2); PLATELET ESTIMATE NORMAL (NORMAL)
--- NOTE | 2024-05-27 09:25 | NUR ---
Patient up this am, ready to take a shower. rounded. Verified she is okay to shower. Patient wanted her morning medications and zofran prior to shower. Dressing to be complete after shower.
[2024-05-27] MEDS ORDERED: Potassium Bicarbonate/Citrate 20 MEQ Effervescent TAB PO SCH (09:45)
--- NOTE | 2024-05-27 10:20 | NUR ---
Patient able to complete dressing change independently with nurse watching, she did well. changing dressing does cause nausea and pain. Medicated with prn medication with reports if increased burning and itching sensation to abdomen. She is awaitng her mom to take her home.
--- NOTE | 2024-05-27 12:40 | NUR ---
Patient provide with all discharge education, as well as supplies to complete dressing changes. Patient overall feeling frustrated and that she is not being heard. Listened to patients questions and concerns, not able to answer all of her questions, but will notify keypunch operators supervisor.
--- NOTE | 2024-05-27 13:15 | NUR ---
Medical Sales Consultant made aware of patient concerns, she went in and talked with patient. Patient wishing she has a patient advocate.
--- NOTE | 2024-05-27 13:30 | NUR ---
called and discussed patient concerns, no new orders. Patient okay to DC home
--- NOTE | 2024-05-27 13:45 | NUR ---
Patient just wanting to get home. Patient wheeled out with all belongings. Her mom to take her home
--- NOTE | 2024-05-27 15:16 | NUR ---
Patient refused last dose of K+
== END 2024-05-27 15:17 | disposition home or self-care (01) | DRG 357 ==
LOC: COL.ER 03:54 → SURG 08:08
PROVIDERS: Internal Medicine; ADMIT Surgery
PROC: 0WBF4ZZ Excision of Abdominal Wall, Percutaneous Endoscopic Approach (ICD-10-PCS; principal; 2024-05-22 08:45)
DX: K31.6 Fistula of stomach and duodenum (principal); L02.211 Cutaneous abscess of abdominal wall
CPT/HCPCS: A9284; J0737; J1100; J1170; J2405; J2543; J2704; J3010; J3030; J7030; Q3014; Q9967

== ENCOUNTER 2024-06-25 19:55 | Emergency (ER) | payer OTHER ==
[~2024-06-25] VITALS: Ht 165.1 cm; Wt 62.3 kg
[~2024-06-25 19:55] MED LIST changes: +DIFLUCAN200 MG PO; +DOXYCYCLINE HY100 MG PO; +OMNICEF 300MG300 MG PO; +ULTRAM 50MG TAB50 MG PO
[2024-06-25 20:00] VITALS: TEMP 98.4
[2024-06-25] MEDS ORDERED: NS 1,000 ML IV ONE (20:45)
[2024-06-25] MEDS ORDERED: Morphine 4 MG/ML VIAL IV PRN (20:45)
[2024-06-25 21:21] LABS: COLLECTION METHOD CLEAN CATCH
[2024-06-25 21:25] LABS: PH 6.5 (5.0-8.5); URINE APPEARANCE CLEAR (CLEAR/HAZY); URINE BLOOD NEGATIVE (NEGATIVE); URINE COLOR YELLOW (YELLOW); URINE GLUCOSE NEGATIVE (NEGATIVE); URINE KETONE NEGATIVE (NEGATIVE); URINE NITRATE NEGATIVE (NEGATIVE); URINE PROTEIN(semi-quant) NEGATIVE (NEGATIVE); URINE UROBILINOGEN 0.2 E.U/dL (0.2-1.0)
[2024-06-25 21:28] LABS: BASO % 0.6 % (0.0-2.0); EOS # 0.1 K/mm3 (0.0-0.7); EOS % 0.9 % (0.0-4.0); GRAN # 2.7 K/mm3 (1.4-6.5); GRAN % 50.4 % (42.2-75.2); HEMOGLOBIN 12.5 g/dl (12.5-16.0); LYMPH # 2.1 K/mm3 (1.2-3.4); LYMPH % 39.4 % (20.0-51.0); MEAN CELL VOLUME 92 fl (80.0-100.0); MEAN CORPUSCULAR HEMOGLOBIN 32 pg (27-31); MEAN CORPUSCULAR HGB CONC 35 g/dl (33.0-37.0); MEAN PLATELET VOLUME 10.8 fl (7.4-10.4); MONO # 0.5 K/mm3 (0.1-0.6); MONO % 8.7 % (1.7-9.3); PLATELET COUNT 240 K/mm3 (130-400); RED BLOOD COUNT 3.93 M/mm3 (4.10-5.30); REDCELL DISTRIBUTION WIDTH-CV 11.9 % (11.5-14.5)
[2024-06-25 21:30] LABS: HEMATOCRIT 36.2 % (37.0-47.0)
[2024-06-25 21:43] LABS: ALANINE AMINOTRANSFERASE 27 U/L (0-55); ALBUMIN 3.5 g/dL (3.5-5.0); ALKALINE PHOSPHATASE 50 U/L (40-150); ANION GAP 8 mmol/L (7-16); AST,SGOT 23 U/L (5-34); BILIRUBIN,TOTAL 0.4 mg/dL (0.2-1.2); BLOOD UREA NITROGEN 5 mg/dL (7-19); CHLORIDE 107 mEq/L (98-107); CREATININE, serum 0.62 mg/dL (0.57-1.11); GLUCOSE 85 mg/dL (70-99); LIPASE 473 U/L (8-78); POTASSIUM 3.7 mEq/L (3.5-4.5); SODIUM 142 mEq/L (136-145)
[2024-06-25 21:48] LABS: C-REACTIVE PROTEIN < 0.02 mg/dL (0.00-0.50)
[2024-06-25] MEDS ORDERED: Iohexol 300 - 100 ML VIAL IV ONE (22:17)
[2024-06-25] MEDS ORDERED: NS 50 ML IV ONE (22:18)
[2024-06-25] MEDS ORDERED: Morphine 4 MG/ML VIAL IV ONE (22:30)
[2024-06-25] MEDS ORDERED: ZOFRAN ODT8 MG PO (23:16)
[2024-06-25] MEDS ORDERED: ULTRAM 50MG TAB50 MG PO ×3 (23:16→23:54)
[2024-06-25 23:34] VITALS: BP 143/95; PULSE 105
[2024-06-26] MEDS ORDERED: ULTRAM 50MG TAB50 MG PO (01:04)
== END 2024-06-25 23:34 | disposition home or self-care (01) ==
LOC: COL.ER 19:55
PROVIDERS: Physician Assistant
DX: K85.90 Acute pancreatitis without necrosis or infection, unspecified (principal)
CPT/HCPCS: J2270; J7030; Q9967